=== PATIENT | male | born 1980 | race Caucasian/White ===

== ENCOUNTER 2018-11-13 10:57 | Emergency (ER) | payer OTHER ==
[2018-11-13 11:08] VITALS: BP 152/98
--- NOTE | 2018-11-13 11:26 | UC ---
Respiratory Complaint HPI - HPI Summary HPI Summary: cough x 2 weeks cough is productive with yellow / green sputum chest congestion , tightness, wheezing, sob nasal congest, pnd, no fever, no chills pt. 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 Negative: Fever, Chills, Pleuritic Chest Pain, Calf Pain - Allergies/Home Medications Allergies/Adverse Reactions: Allergies Allergy/AdvReac Type Severity Reaction Status Date / Time bupropion Allergy Unknown Verified 11/12/18 14:32 Reaction Details codeine Allergy Nausea Verified 11/12/18 14:32 ibuprofen Allergy Bleeding Verified 11/12/18 14:32 tramadol Allergy Unknown Verified 11/12/18 14:32 Reaction Details GLUTEN Allergy GI Upset Uncoded 11/12/18 14:32 Home Medications: Home Medications Mometasone 110 MCG MDI * [Asmanex 110 MCG MDI *] 1 puff INH DAILY 11/13/18 [ History Confirmed 11/13/18] PMH/Surg Hx/FS Hx/Imm Hx Respiratory History: COPD, Asthma - Surgical History Surgical History: Yes Surgery Procedure, Year, and Place: november 2011, mastoid removed right ear(NO IMPLANTS PER -{SW})./ jun 2010 left elbow in 2002,rt shoulder surgery 2011&2012; 2012 0R 2013 SECOND EAR SURGERY WITH COCHLEAR IMPLANT PLACED(DR PEACE)CONDITIONAL 5 UP TO 1.5T..SEE INFORMATION SCANNED INTO OTHER FACILTIY OPERATIVE REPORTS - Family History Known Family History: Negative: Diabetes - Social History Alcohol Use: Weekly Alcohol Amount: 1-2 Substance Use Type: Marijuana Substance Use Comment - Amount & Last Used: hydrocodone Smoking Status (MU): Former Smoker Type: Cigarettes Amount Used/How Often: 1/2 PPD Length of Time of Smoking/Using Tobacco: 20 years Have You Smoked in the Last Year: Yes When Did the Patient Quit Smoking/Using Tobacco: July 06, 2018 Household Exposure Type: Cigarettes Review of Systems All Other Systems Reviewed And Are Negative: Yes Constitutional: Positive: Negative Skin: Positive: Negative Eyes: Positive: Negative ENT: Positive: Nasal Discharge Respiratory: Positive: Shortness Of Breath, Cough Cardiovascular: Positive: Negative Is Patient Immunocompromised?: No Physical Exam Triage Information Reviewed: Yes Appearance: Well-Appearing, No Pain Distress, Well-Nourished Vital Signs: Initial Vital Signs Temp 97.9 F 11/13/18 11:00 Pulse 91 11/13/18 11:00 Resp 20 11/13/18 11:00 BP 152/98 11/13/18 11:00 Pulse Ox 96 11/13/18 11:00 Vital Signs Reviewed: Yes Eye Exam: Normal Eyes: Positive: Conjunctiva Clear ENT: Positive: Normal ENT inspection, Hearing grossly normal, Pharynx normal Neck: Positive: Supple, Nontender, No Lymphadenopathy Respiratory: Positive: Chest non-tender, Respiratory distress, Wheezing Cardiovascular: Positive: RRR, No Murmur, Pulses Normal Skin Exam: Normal Respiratory Course/Dx - Differential Dx/Diagnosis Provider Diagnosis: Chemical pneumonitis Discharge - Sign-Out/Discharge Documenting (check all that apply): Patient Departure All imaging exams completed and their final reports reviewed: Yes - Discharge Plan Condition: Stable Disposition: HOME Prescriptions: predniSONE TAB* [Deltasone 20 MG TAB*] 40 mg PO DAILY #10 tab Patient Education Materials: Pneumonitis (ED) Referrals: Elvis Flor PA [Primary Care Provider] - 7 Days Additional Instructions: chest xray : 2 views of the chest including dual energy PA views demonstrate no mediastinal shift. Hyperinflated lung hussein are noted. No pleural fluid, pneumonia or pneumothorax is noted. IMPRESSION: Hyperinflated lung hussein without evidence of active cardiopulmonary disease. cont. with increase fluid, cont. with your Albuterol inh every 4 to 6 hrs as needed for wheezing and sob prednisone 40 mg daily x 5 days follow up with your pcp in 5 to 7 days - Billing Disposition and Condition Condition: STABLE Disposition: Home
== END 2018-11-13 12:08 | disposition home or self-care (01) ==
LOC: UCCORT 10:57
DX: J68.0 Bronchitis and pneumonitis due to chemicals, gases, fumes and vapors (principal); J44.9 Chronic obstructive pulmonary disease, unspecified; Z87.891 Personal history of nicotine dependence
CPT/HCPCS: 71046; 99212; G0463

== ENCOUNTER 2018-11-16 09:30 | Emergency (ER) | payer OTHER ==
[2018-11-16 10:25] VITALS: BP 132/79
--- NOTE | 2018-11-16 10:39 | UC ---
Respiratory Complaint HPI - HPI Summary HPI Summary: Pt presents with request for referral to academic support specialist and would like another day off from work as he is not feeling any better. 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 - History of Current Complaint Chief Complaint: UCRespiratory Stated Complaint: WC-CHEM EXPOSURE RECHECK Time Seen by Provider: 11/16/18 10:29 Hx Obtained From: Patient Onset/Duration: Gradual Onset, Lasting Days, Still Present Timing: Constant Severity Initially: Moderate Severity Currently: Moderate Pain Intensity: 0 Character: Cough: Productive Aggravating Factors: Allergens, Deep Breaths Alleviating Factors: Nothing Associated Signs And Symptoms: Positive: Dyspnea - Risk Factors Pulmonary Embolism Risk Factors: Negative Cardiac Risk Factors: Negative Pseudomonas Risk Factors: Negative Tuberculosis Risk Factors: Negative - Allergies/Home Medications Allergies/Adverse Reactions: Allergies Allergy/AdvReac Type Severity Reaction Status Date / Time bupropion Allergy Unknown Verified 11/16/18 10:14 Reaction Details codeine Allergy Nausea Verified 11/16/18 10:14 ibuprofen Allergy Bleeding Verified 11/16/18 10:14 tramadol Allergy Unknown Verified 11/16/18 10:14 Reaction Details GLUTEN Allergy GI Upset Uncoded 11/16/18 10:14 PMH/Surg Hx/FS Hx/Imm Hx Previously Healthy: Yes - Surgical History Surgical History: Yes Surgery Procedure, Year, and Place: november 2011, mastoid removed right ear(NO IMPLANTS PER -{SW})./ jun 2010 left elbow in 2002,rt shoulder surgery 2011&2012; 2012 0R 2013 SECOND EAR SURGERY WITH COCHLEAR IMPLANT PLACED(DR PEACE)CONDITIONAL 5 UP TO 1.5T..SEE INFORMATION SCANNED INTO OTHER FACILTIY OPERATIVE REPORTS - Family History Known Family History: Negative: Diabetes - Social History Occupation: Employed Full-time Lives: With Family Alcohol Use: Weekly Alcohol Amount: 1-2 Substance Use Type: Marijuana Substance Use Comment - Amount & Last Used: hydrocodone Smoking Status (MU): Former Smoker Type: Cigarettes Amount Used/How Often: 1/2 PPD Length of Time of Smoking/Using Tobacco: 20 years Have You Smoked in the Last Year: Yes When Did the Patient Quit Smoking/Using Tobacco: July 06, 2018 Household Exposure Type: Cigarettes Review of Systems All Other Systems Reviewed And Are Negative: Yes Constitutional: Positive: Negative Skin: Positive: Negative Eyes: Positive: Negative ENT: Positive: Negative Respiratory: Positive: Shortness Of Breath, Cough Cardiovascular: Positive: Negative Gastrointestinal: Positive: Negative Genitourinary: Positive: Negative Motor: Positive: Negative Neurovascular: Positive: Negative Musculoskeletal: Positive: Negative Neurological: Positive: Negative Psychological: Positive: Negative Is Patient Immunocompromised?: No Physical Exam Triage Information Reviewed: Yes Appearance: Well-Appearing Vital Signs: Initial Vital Signs Temp 98.1 F 11/16/18 10:16 Pulse 69 11/16/18 10:16 Resp 18 11/16/18 10:16 BP 132/79 11/16/18 10:16 Pulse Ox 96 11/16/18 10:16 Vital Signs Reviewed: Yes Eye Exam: Normal ENT Exam: Normal Dental: Positive: Gross Decay/Caries @ Neck exam: Normal Respiratory: Positive: Decreased breath sounds Musculoskeletal Exam: Normal Neurological Exam: Normal Psychological Exam: Normal Skin Exam: Normal Respiratory Course/Dx - Differential Dx/Diagnosis Differential Diagnosis/HQI/PQRI: Bronchitis, Exacerbation Of COPD Provider Diagnosis: Shortness of breath Discharge - Sign-Out/Discharge Documenting (check all that apply): Patient Departure All imaging exams completed and their final reports reviewed: No Studies - Discharge Plan Condition: Stable Disposition: HOME Patient Education Materials: Shortness of Breath (ED) Forms: *Work Release Referrals: Elvis Flor PA [Primary Care Provider] - As Soon As Possible Ousmane Beltran MD [Medical Doctor] - As Soon As Possible Jorge Luis Avalos MD [Medical Doctor] - As Soon As Possible Magan Casey MD [Medical Doctor] - As Soon As Possible Additional Instructions: We have provided you with several pulmonology providers. Please follow up as needed. - Billing Disposition and Condition Condition: STABLE Disposition: Home
== END 2018-11-16 10:52 | disposition home or self-care (01) ==
LOC: UCCORT 09:30
DX: R06.02 Shortness of breath (principal); Z96.21 Cochlear implant status; Z87.891 Personal history of nicotine dependence
CPT/HCPCS: 99201; G0463